=== PATIENT | male | born 1965 | race African-American/Black ===

== ENCOUNTER → 2018-10-03 | Emergency (ER) | payer MEDICARE ==
[~2018-10-03] MED LIST: Insulin Regular 300 UNITS/3 ML VIAL ONE; Ketamine 50 MG/ML (10ML VIAL) ONE; Lorazepam 2 MG/ML VIAL ONE; Rocuronium Bromide 50 MG/5 ML VIAL ONE
[2018-10-03 18:12] LABS: #Basophils 0.1 thou/uL (0.0-0.2); #Eosinphils 0.2 thou/uL (0.0-0.7); #Lymphocytes 1.4 thou/uL (1.20-3.40); #Monocytes 0.6 thou/uL (0.11-0.59); #Neutrophils 3.8 thou/uL (1.40-6.50); %Basophils 1.5 % (0.0-1.0); %Eosinophils 2.7 % (0.0-10.0); %Lymphocytes 23.7 % (21.0-51.0); %Monocytes 9.6 % (0.0-10.0); %Neutrophils 62.5 % (42.0-75.0); Hemoglobin 14.2 g/dL (14.0-18.0); Mean Corpuscular HGB CONC 32.6 g/dL (32.0-36.0); Mean Corpuscular Hemoglobin 28.1 pg (27.0-31.0); Mean Corpuscular Volume 86.2 fL (78.0-98.0); Platelet Count 234 thou/uL (130-400); RBC Distribution Width 13.7 % (11.5-14.5); Red Blood Cell (RBC) Count 5.07 mill/uL (4.70-6.10)
[2018-10-03 18:18] LABS: INR-International Normal Ratio 1.1; PTT 28.8 SEC (22.9-36.1); Prothrombin Time 14.2 SEC (12.0-14.7)
[2018-10-03 18:26] LABS: ALT (SGPT) 23 U/L (8-55); AST (SGOT) 19 U/L (5-34); Albumin 3.8 g/dL (3.5-5.0); Alkaline Phosphatase 95 U/L (40-150); Anion Gap 17 mmol/L (10-20); BUN (Urea Nitrogen) 13 mg/dL (8.9-20.6); Bilirubin, Total 1.6 mg/dL (0.2-1.2); Calc. Creatinine Clearance 0 mL/min (70-130); Calcium 9.2 mg/dL (7.8-10.44); Carbon Dioxide 24 mmol/L (22-29); Chloride 89 mmol/L (98-107); Estimated GFR-MDRD 47; Globulin 4.2 g/dL (2.4-3.5); Potassium 4.8 mmol/L (3.5-5.1); Sodium 125 mmol/L (136-145)
[2018-10-03 18:27] LABS: Glucose 845 mg/dL (70-105)
--- NOTE | 2018-10-03 18:29 | CT ---
CT HEAD NONCONTRAST: INDICATIONS: Neurologic deficit. Stroke. Weakness. FINDINGS: There is a normal-sized ventricular system. No midline shift or acute intracranial hemorrhage. Ther e are small hypodensities of the bilateral basal ganglia, indicating lacunar infarctions, grossly sta ble to the 07/30/2018 exam. IMPRESSION: No acute intracranial hemorrhage or mass effect. Telephone call placed to ER physician, Sunil Deal D.O., at 1757 hours on 10/03/2018. CODE CR POS: [facility]
[2018-10-03 18:43] LABS: CKMB 3.8 ng/mL (0-6.6)
--- NOTE | 2018-10-03 23:17 | RAD ---
AP PORTABLE CHEST: 10/03/2018 1941 HOURS COMPARISON: 07/29/2018 FINDINGS: The patient is turned to the side, which makes seeing the left lung well difficult. The patient has been intubated. The tip of the endotracheal tube does seem rather low and potentially enters the rig ht main bronchus. It needs to be retracted a few centimeters and rechecked. The heart is enlarged. The right lung is clear. It is difficult to assess the left lung, as stated above. An AICD is in p lace. IMPRESSION: 1. Cardiomegaly. 2. The endotracheal tube is low and needs to be retracted. POS: HOME
== END ==
LOC: BURERS 17:40
DX: E11.00 Type 2 diabetes mellitus with hyperosmolarity without nonketotic hyperglycemic-hyperosmolar coma (NKHHC) (principal); R29.818 Other symptoms and signs involving the nervous system; E78.5 Hyperlipidemia, unspecified; I11.0 Hypertensive heart disease with heart failure; I50.9 Heart failure, unspecified; I25.10 Atherosclerotic heart disease of native coronary artery without angina pectoris; E66.9 Obesity, unspecified; F41.9 Anxiety disorder, unspecified; F31.9 Bipolar disorder, unspecified; F17.210 Nicotine dependence, cigarettes, uncomplicated; Z79.899 Other long term (current) drug therapy
CPT/HCPCS: 31500; 36415; 70450; 71045; 80053; 82553; 84484; 85025; 85610; 85730; 93005; 96374; 96376; J1815; J2060